=== PATIENT | female | born 1955 | race Caucasian/White ===

== ENCOUNTER → 2016-10-27 | Outpatient (CLI) | payer BC ==
[~2016-10-27] MED LIST: BLACK COHOSH40 MG PO; CENTRUM WOMEN1 EACH PO; LORCET 5-325 M1 EACH PO; NEURONTIN100 MG PO; SUPER CALCIUM600 MG PO; TIZANIDINE HCL4 MG PO; TYLENOL WITH C1 EACH PO; VOLTAREN50 MG PO
== END | disposition home or self-care (01) ==
LOC: CDC 08:56
DX: Z01.810 Encounter for preprocedural cardiovascular examination (principal); M43.10 Spondylolisthesis, site unspecified; M48.06 Spinal stenosis, lumbar region; M54.16 Radiculopathy, lumbar region
CPT/HCPCS: 93000

== ENCOUNTER 2016-11-02 08:58 | Inpatient (IN) | payer BC ==
[~2016-11-02] VITALS: Ht 167.6 cm; Wt 59.0 kg
[~2016-11-02 08:58] MED LIST changes: -TIZANIDINE HCL4 MG PO; -TYLENOL WITH C1 EACH PO
[2016-11-02 12:23] VITALS: BP 125/75
[2016-11-02 19:40] VITALS: BP 110/74
[2016-11-02 20:07] VITALS: BP 127/60
[2016-11-02 20:21] VITALS: BP 110/78
[2016-11-03 00:35] VITALS: BP 95/50
[2016-11-03 01:00] VITALS: BP 105/77
[2016-11-03 05:52] VITALS: BP 94/50
[2016-11-03] MEDS ORDERED: TIZANIDINE HCL4 MG PO (07:26)
[2016-11-03] MEDS ORDERED: LORCET 5-325 M1 EACH PO (07:26)
[2016-11-03] MEDS ORDERED: TYLENOL WITH C1 EACH PO (07:49)
[2016-11-03 08:11] VITALS: BP 107/52
[2016-11-03 11:51] VITALS: BP 112/63
== END 2016-11-03 15:45 | disposition home or self-care (01) | DRG 460 ==
LOC: 2SOUTH 08:58 → 3EAST 19:17
DX: M43.16 Spondylolisthesis, lumbar region (principal); M48.06 Spinal stenosis, lumbar region; M47.26 Other spondylosis with radiculopathy, lumbar region; M41.9 Scoliosis, unspecified
CPT/HCPCS: 72100; 76000; J0330; J0690; J1100; J1580; J2250; J2405; J2710; J2930; J3010; J3370; J3480; S0020